=== PATIENT | male | born 1980 | race Caucasian/White ===

== ENCOUNTER 2019-03-04 07:59 | Emergency (ER) | payer OTHER ==
[2019-03-04 08:04] VITALS: BP 160/100; PULSE 76; RESP 20; TEMP 98
[2019-03-04] MEDS ORDERED: LIDOCAINE 1% INJ 10MG/ML (20 ML MDV) SQ ONE (08:11)
[2019-03-04] MEDS ORDERED: DIPH,PERTUS(ACELL)TETVAC-LF 0.5 ML VIAL IM ONE (08:12)
--- NOTE | 2019-03-04 08:16 | ED ---
Extremity Problem HPI - General Chief complaint: Extremity Problem,Nontraumatic Stated complaint: hand swelling/pain Time Seen by Provider: 03/04/19 08:05 Source: patient, RN notes reviewed, old records reviewed Mode of arrival: ambulatory Limitations: no limitations - History of Present Illness Initial comments: Patient is a pleasant 38-year-old male who presents emergency Department today with complaints of concerns for retained splinter within his right hand. Patient reports that he was helping a coworker pickup 6 yesterday and believes he was poked with a sharp sore in between his third and fourth proximal interphalangeal joint. Patient states that he's noticed some minor swelling and erythema. He states he has some pain with full education managers strength. He does report normal sensation over his fingertips. Patient denies any recent fevers or chills. - Related Data Previous Rx's Medication Instructions Recorded Hydrocodone/Acetaminophen [[place] 1 - 2 each PO Q4HR PRN #30 tab 06/30/15 5-325] Cephalexin [Keflex] 500 mg PO Q6HR 3 Days #12 cap 03/04/19 Allergies Allergy/AdvReac Type Severity Reaction Status Date / Time No Known Allergies Allergy Verified 03/04/19 08:04 Review of Systems ROS Statement: Those systems with pertinent positive or pertinent negative responses have been documented in the HPI. ROS Other: All systems not noted in ROS Statement are negative. Past Medical History Past Medical History: Hyperlipidemia, Hypertension History of Any Multi-Drug Resistant Organisms: None Reported Past Surgical History: Hernia Repair Additional Past Anesthesia/Blood Transfusion Reaction / Comment(s): never had anesthesia Past Psychological History: No Psychological Hx Reported Smoking Status: Current every day smoker Past Alcohol Use History: Occasional Past Drug Use History: Marijuana - Past Family History Mother Family Medical History: No Reported History General Exam - General Exam Comments Initial Comments: 38-year-old male. Alert and oriented 3. No significant distress. General: Well appearing, well nourished, in no distress. Oriented x 3, normal mood and affect . Ambulating without difficulty. Skin: Good turgor, no rash, unusual bruising or prominent lesions Hair: Normal texture and distribution. HEENT: Head: Normocephalic, atraumatic, no visible or palpable masses, depressions, or scaring. Eyes: Visual acuity intact, conjunctiva clear, sclera non-icteric, EOM intact, PERRL. Neck: Supple, without lesions. Heart: No cardiomegaly or thrills; regular rate and rhythm, no murmur or gallop Lungs: Clear to auscultation and percussion Extremities: No amputations or deformities, cyanosis, edema or varicosities, peripheral pulses intact. Patient has a retained wooden splinter over the right third and fourth knuckle with some minor surrounding swelling and erythema. Less than Sunday A refill. Full range of motion of fingers. No significant pain with flexion or extension. Musculoskeletal: Normal gait and station. No misalignment, asymmetry, crepitation, defects, tenderness, masses, effusions, decreased range of motion, instability, atrophy or abnormal strength or tone in the head, neck, spine, ribs, pelvis or extremities. Neurologic: CN 2-12 normal. Sensation to pain, touch, and proprioception normal. DTRs normal in upper and lower extremities. No pathologic reflexes. Limitations: no limitations Course Vital Signs 03/04/19 08:01 Temperature 98 F Pulse Rate 76 Respiratory 20 Rate Blood Pressure 160/100 O2 Sat by Pulse 98 Oximetry Procedures - Procedures Initial comment: Soft tissue foreign body of a wooden splinter is removed between the right third and fourth knuckle. Wound was cleaned with Betadine, anesthetized with 1 mL of 1% lidocaine. I used tweezers and remove the retained foreign body of the wooden splinter. Patient is reevaluated after procedures or vascular intact. Bleeding is well-controlled. Medical Decision Making - Medical Decision Making 38-year-old male presents emergency department today for a splinter within his right third and fourth digit medical after Patient states while at work. He has some some minor surrounding erythema. I anesthetized the area with lidocaine and used tweezers to remove the small wooden foreign body. We'll put the Patient on a short prescription for antibiotics for concern for early cellulitis over the hand. All questions answered return parameters were discussed. Patient was given referral for Dr. Stone, hand specialist. Discussed the area of redness swelling or pain with range of motion worsens to return for reevaluation. No concern for flexor tenosynovitis at this time, discuss her sent symptoms wait and watch for. Disposition Clinical Impression: Splinter of hand Disposition: HOME SELF-CARE Condition: Good Instructions (If sedation given, give patient instructions): Soft Tissue Foreign Body (ED) Additional Instructions: Watch for any worsening pain, redness swelling or infection. Return to the emergency department if any alarming signs or symptoms occur. Take antibiotic as prescribed. Follow-up with hand specialist if symptoms continue persist or worsen. Prescriptions: Cephalexin [Keflex] 500 mg PO Q6HR 3 Days #12 cap Is patient prescribed a controlled substance at d/c from ED?: No Referrals: None,Stated [Primary Care Provider] - 1-2 days Kana Stone DO [Medical Doctor] - 1-2 days Time of Disposition: 08:28
== END 2019-03-04 08:43 | disposition home or self-care (01) ==
LOC: EC 07:59
DX: S60.551A Superficial foreign body of right hand, initial encounter (principal); F17.200 Nicotine dependence, unspecified, uncomplicated; Z23 Encounter for immunization; W45.8XXA Other foreign body or object entering through skin, initial encounter; Y92.69 Other specified industrial and construction area as the place of occurrence of the external cause; Y99.0 Civilian activity done for income or pay
CPT/HCPCS: 90715; 99283; 90471; J2001